=== PATIENT | female | born 2005 | race Caucasian/White ===

== ENCOUNTER 2023-05-17 17:12 | Emergency (ER) | payer BC, SELFPAY ==
[2023-05-17 17:17] VITALS: BP 104/58; PULSE 128; RESP 14; TEMP 36.3; O2SAT 97; BMI 26.6
--- NOTE | 2023-05-17 17:56 | ED_ITS ---
HPI - General Adult General Date Seen: 05/17/23 Chief complaint: Sore Throat Stated complaint: Sore throat/home covid neg. Time Seen by Provider: 05/17/23 17:20 Source: patient Mode of arrival: ambulatory Limitations: no limitations History of Present Illness HPI narrative: Patient is a 17-year-old female presenting with what for sore throat, fatigue, nausea. States that it has undergone for the past few days. She is exposed to COVID and strep she has taken 2 home COVID test there were both negative with the past couple days. She has been having associated nausea but has not been ea ting much due to the nausea. States she is not currently nauseated. Denies fevers or chills. States the pain is mild when she swallows. Denies any chest pain, shortness of breath, diarrhea, constipation. She does admit to having a headache. Has been taking Tylenol for the headache. Denies numbness, weakness, vision changes. Related Data Home Medications Medication Instructions Recorded Confirmed clindamycin phosphate 1 % topical 1 applic topical QDAY 07/03/22 05/17/23 gel sertraline 50 mg tablet (Zoloft) 50 mg PO QDAY 07/03/22 05/17/23 IUD 05/17/23 Previous Rx's Medication Instructions Recorded ondansetron 4 mg disintegrating 4 mg PO Q6H #20 tabs 05/17/23 tablet Allergies Allergy/AdvReac Type Severity Reaction Status Date / Time Penicillins Allergy Severe Verified 05/17/23 17:27 Review of Systems Status of ROS: Reports: 10 or more systems reviewed and unremarkable except as noted in History and below PFSH PFS Medical History (Updated 05/17/23 @ 19:25 by Willy Ramirez DO) OCD (obsessive compulsive disorder) ?F42.9 - Obsessive-compulsive disorder, unspecified (ICD-10) Anxiety ?F41.9 - Anxiety disorder, unspecified (ICD-10) Surgical History (Updated 07/03/22 @ 16:05 by Anne Mcduffie PA-C) No history of previous surgery Family History (Updated 07/03/22 @ 16:07 by Anne Mcduffie PA-C) Family/Other Stroke Paternal Grandmother Colon cancer Aunt Breast cancer Family/Other Ovarian cancer Family/Other Lymphoma Pancreatic cancer Maternal Grandmother High blood pressure Paternal Grandmother Diabetes Social History (Updated 07/03/22 @ 16:08 by Anne Mcduffie PA-C) Narrative: Sophomore at [employer], [place], originally from [place]. Exercises 2 times per week. Nonsmoker. Denies alcohol use. No recreational drug use. No concerns with safety or abuse Smoking Status: Former smoker Do you use any of these nicotine containing products: None How often do you have a drink containing alcohol: never AUDIT-C Alcohol total score: 0 Non-prescribed substance use: denies use service: No Exam Narrative: Exam Narrative: Const: Well-nourished, Well-developed, in mild distress Eyes: PERRL, no conjunctival injection, and symmetrical lids HENT: Atraumatic external nose and ears. Moist mucous membranes. Erythematous oropharynx, uvula midline, no tonsillar exudate or swelling Neck: Symmetric, trachea midline, No thyromegaly. CVS: RRR, No murmurs or gallops. Peripheral pulses 2+ and equal in all extremities RESP: Unlabored respiratory effort. Clear to auscultation bilaterally. GI: Nontender/Nondistended, No rebound or guarding. MSK:Extremities w/o deformity, Normal Active ROM Skin: Warm, Dry. No rashes or lesions. Neuro: Normal Muscle tone, No focal neurological deficits. Psych: Awake, Alert, & Oriented x3. Appropriate mood and affect. Const: Vital Signs, click to edit/add: Vital Signs - 24 hr 05/17/23 17:17 05/17/23 19:00 Temperature 97.3 F L 98.9 F Pulse Rate [Pulse Oximeter] 128 H Respiratory Rate 14 Blood Pressure [Ri ght Upper Arm] 104/58 L Pulse Oximetry 97 Oxygen Delivery Me thod Room Air Course Vital Signs Vital signs: Initial Vital Signs Temperature 97.3 F L 05/17/23 17:17 Temperature Source Temporal Artery Scan 05/17/23 17:17 Pulse Rate 128 H 05/17/23 17:17 Pulse Rhythm Regular 05/17/23 17:17 Respiratory Rate 14 05/17/23 17:17 Blood Pressure 104/58 L 05/17/23 17:17 Blood Pressure Mean 73 05/17/23 17:17 Blood Pressure Position Sitting 05/17/23 17:17 Pulse Oximetry 97 05/17/23 17:17 Oxygen Delivery Method Room Air 05/17/23 17:17 Vital Signs Temperature 97.3 F L 05/17/23 17:17 Pulse Rate 128 H 05/17/23 17:17 Respiratory Rate 14 05/17/23 17:17 Blood Pressure 104/58 L 05/17/23 17:17 Pulse Oximetry 97 05/17/23 17:17 Oxygen Delivery Method Room Air 05/17/23 17:17 Temperature 98.9 F 05/17/23 19:00 Pulse Rate 128 H 05/17/23 17:17 Respiratory Rate 14 05/17/23 17:17 Blood Pressure 104/58 L 05/17/23 17:17 Pulse Oximetry 97 05/17/23 17:17 Oxygen Delivery Method Room Air 05/17/23 17:17 Medical Decision Making MDM Narrative Medical decision making narrative: Patient is an 16-year-old female presented emergency department for sore throat. She is having no difficulty breathing and no signs of airway compromise at this time. Deep neck space infection seem to be unlikely at this time. She has not been eating because of nausea 1st not currently nauseated she does not want any nausea medication. Does admit to headache in with rather have oral ibuprofen over a Toradol injection. No signs of peritonsillar abscess. She has been around COVID positive people and we will test her again for COVID and flu despite the to home negative test. Also test for strep and mono. She has been drinking plenty of fluids according to her. COVID, flu,, strep test are all negative. Most likely symptoms are secondary a different viral syndrome. We will send home with nausea medication. She has not required any steroids for her sore throat. Can take Tylenol and ibuprofen for pain. She is agreeable to this plan. Lab Data Labs: Lab Results 05/17/23 05/17/23 Range/Units 17:27 18:00 SARS-CoV-2 (PCR) Negative SARS-CoV-2 (Negative) Monoscreen Negative (Negative) Influenza Type A (PCR) Negative PCR FLU A (Negative) Influenza Type B (PCR) Negative PCR FLU B (Negative) RSV (PCR) Negative PCR RSV (Negative) Group A Strep DNA NOT DETECTED (Not Detectd) Discharge Plan Discharge Clinical Impression: Acute viral pharyngitis Patient Disposition: Home, Self-Care Condition: Stable Instructions: Pharyngitis (ED) Additional Instructions: Take the Zofran as needed for nausea. Return for new or worsening symptoms. Use Tylenol and ibuprofen for pain. Make sure you stay well hydrated. Prescriptions: New ondansetron 4 mg tablet,disintegrating 4 mg PO Q6H Qty: 20 0RF No Action sertraline [Zoloft] 50 mg tablet 50 mg PO QDAY clindamycin phosphate 1 % gel 1 applic topical QDAY IUD Follow Up/Referrals: Provider,Not a Local [Primary Care Provider] - Stand Alone Forms: [employer] Info Instructions
[2023-05-17 18:14] LABS: Mono Screen* Negative (Negative)
[2023-05-17 18:14] LABS: Strep A DNA Probe* NOT DETECTED (Not Detectd)
[2023-05-17 18:22] LABS: PCR FLU A Negative PCR FLU A (Negative); PCR FLU B Negative PCR FLU B (Negative); PCR RSV Negative PCR RSV (Negative)
[2023-05-17] MEDS: IBUPROFEN 400 MG TABLET 800 MG PO (18:40)
[2023-05-17 19:00] VITALS: TEMP 37.2
[2023-05-17 19:22] LABS: SARS PCR* Negative SARS-CoV-2 (Negative)
== END 2023-05-17 19:38 | disposition home or self-care (01) ==
PROVIDERS: Emergency Provider Student in an Organized Health Care Education/Training Program
DX: J02.9 Acute pharyngitis, unspecified (principal)
CPT/HCPCS: 36415; 86308; 87631; 87651; 99282; 99283; A9270

== ENCOUNTER 2024-10-17 09:05 | Day surgery (SDC) | payer BC, SELFPAY ==
[2024-10-17] VITALS (15 sets, daily range): BP systolic 88–132; BP diastolic 47–74; PULSE 78–116; RESP 16–22; TEMP 36.4–36.9; O2SAT 93–99; BMI 31.4
[2024-10-17] MEDS: LACTATED RINGERS 1000 ML 1,000 ML 100 ML IV (06:55)
--- OUTSIDE RECORDS SUMMARY | 2024-10-17 09:08 | XMS_ITS | Encounter Summary ---
Author Organization [facility] Address [address] [address] Phone Care Team Providers Care Certification Engineer Name Role Phone Tatyana Valverde MD Primary Care Provider [phone] Encounter Details Date Type Department Care Team (Latest Contact Info) Description 09/17/2024 Travel Social History Tobacco Use Types Packs/Day Years Used Date Smoking Tobacco: Never Smokeless Tobacco: Never Alcohol Use Standard Drinks/Week Comments Yes 3 (1 standard drink = 0.6 oz pure alcohol) once every 1-2 weeks, a few drinks [facility] Utilities Answer Date Recorded In the past 12 months has [employer] electric, gas, oil, or water company threatened to shut off services in your home? No 04/22/2024 AUDIT-C Answer Date Recorded Q1: How often do you have a drink containing alc ohol? Never 04/28/2020 Average Number of Drinks Not on file 020 Frequency of Binge Drinking Not on file 09/2019 Overall Financial Resource Strain (CARDIA) Answe r Date Recorded How hard is it for you to pa y for the very basics like food, housing, medical care, and heating? Not very hard 08/24/2023 PHQ-2 Answer Date Recorded PHQ-2 Total 2 09/17/2024 Hunger Vital Sign Answer Date Recorded Within the past 12 months, y ou worried that your food would run out before you got the money to buy more. Never true 04/22/20 24 Within the past 12 months, t he food you bought just didn't last and you didn't have money to get more. Never true 04/22/2024 PRAPARE - Transportation Answer Date Re corded In the past 12 months, has l ack of transportation kept you from medical appointments or from getting medications? No 03/28 In the past 12 months, has l ack of transportation kept you from meetings, work, or from getting things needed for daily living? No 04/22/2024 Housing Stability Vital Sign Answer Michael e Recorded In the last 12 months, was t here a time when you were not able to pay the mortgage or rent on time? No 04/22/2024 Number of Times Moved in the Last Year Not on fi le 04/22/2024 At any time in the past 12 m ont, were you homeless or living in a intermediate (including now)? No 04/22/2024 EH IP Housing Domain Answer Date Record ed Retired - What is your livin g situation today? I have a steady place to live 08/24/2023 EH IP Custom Utilities ([employer]) Answer Date Recorded How hard is it for you to pa y for the very basics like food, housing, medical care, and heating? 4 08/24/2023 Comments No Sex and Gender Information Value Date Recorded Sex Assigned at Female 08/27/2022 12:57 PM TANK CALIBRATOR Legal Sex Female 1:52 PM CDT Gender Identity Female 08/27/2022 12:57 PM TANK CALIBRATOR Sexual Orientation Not on file documented as of this encounter Plan of Treatment Upcoming Encounters Date Type Department Care Team (Late st Contact Info) Description 10/23/2024 11:00 AM TANK CALIBRATOR Appointment [facility] [address] [place] [address] [phone] Alba Saunders, SANITATION LABORER,[facility] [address] [place] [address] [phone] documented as of this encounter Visit Diagnoses Not on filedocumented in this encounter Care Teams Certification Engineer Relationship Specialty Start Date End Date Tatyana Valverde MD [facility] [place] [address] PCP - General Family Medicine 04/05/21 documented as of this encounter
--- OUTSIDE RECORDS SUMMARY | 2024-10-17 09:08 | XMS_ITS | Encounter Summary ---
Author Organization [facility] Address [address] [address] Phone Care Team Providers Care Boat Builder And Repairer Name Role Phone Tatyana Valverde MD Primary Care Provider [phone] Reason for Visit * Reason Comments Anxiety Encounter Details Date Type Department Care Team ([facility] st Contact Info) Description 09/23/2024 2:30 PM BIOMEDICAL ELECTRONICS TECHNICIAN Office Visit [facility] [address] [place] [address] [phone] Alba Saunders, REHABILITATION ATTENDANT,DENTAL MECHANIC [address] [place] [phone] Obsessive-compulsive disorder with good or fair insight (Primary Dx) Social History Tobacco Use Types Packs/Day Years Used Date Smoking Tobacco: Never Smokeless Tobacco: Never Alcohol Use Standard Drinks/Week Comments Yes 3 (1 standard drink = 0.6 oz pure alcohol) once every 1-2 weeks, a few drinks [facility] Utilities Answer Date Recorded In the past 12 months has [employer], gas, oil, or water Nursing Home [facility] threatened to shut off services in your [...] any time in the past 12 m onths, were you homeless or living in a custodial (including now)? No 04/22/2024 EH IP Housing [...] Sex Assigned at Female 08/27/2022 12:57 PM BIOMEDICAL ELECTRONICS TECHNICIAN Legal Sex Female 1:52 PM CDT Gender Identity Female 08/27/2022 12:57 PM BIOMEDICAL ELECTRONICS TECHNICIAN Sexual Orientation Not on file documented as of this encounter Progress Notes * Alba Saunders, REHABILITATION ATTENDANT,[facility] - 09/23/2024 2:30 PM CST Images from the original note were not included. [facility] Progress Note Else19 year old presenting for follow up psychotherapy. Associated Diagnosis: 1. Obsessive-compulsive disorder with good or fair insight Current Outpatient Medications Medication Sig Dispense Refill metroNIDAZOLE (Metrogel) 0.75 % gel Apply topically two times a day. Apply to affected area: acne on face. 45 g 2 tretinoin (Retin-A) 0.05 % cream Apply topically every evening. Apply to affected area: acne on face. 45 g 2 FLUoxetine (PROzac) 20 MG capsule Take 1 capsule with 10 mg for total of 30 mg daily. 30 Capsule 1 FLUoxetine (PROzac) 10 MG capsule Take 1 capsule with 20 mg for total of 30 mg daily. 30 Capsule 1 Current Facility-Administered Medications Medication Dose Route Frequency Provider Last Rate Last Admin levonorgestrel (KYLEENA) 19.5 MG intra uterine device 1 Intra Uterine Device 1 Intra Uterine DeviceIntrauterine Continuous RoTatyana núñez MD 1 Intra Uterine Device at 03/24/22 1711 Start Time: 230PM End Time: 330PM Total Time =60 minutes Service Type: Outpatient Individual Psychotherapy Office visit in-person at [facility] Session: Dory arrived on time to her session and has continued to process the relationship she would like to have with her mother's . She also discusses the likelihood that she will become vanda's primary conduit cleaner in the future and how that may impact her next steps of decisions givenrox is graduating college. Dory is open to utilizing the DBT pros and cons list between finding [facility] in [facility] versus [place]. Session focused on continued rapport building, father figures, trauma and included the following intervention(s): Exploration of Feelings, Identifying Activators, Labeling Feelings, Process Work, andPsychoeducation. Assessment: Dory demonstrates good insight into her mental health symptoms and is engaged in the psychotherapy process. She is able to identify and articulate different behavioral patterns within herself as well as areas in which they may have originated. She will benefit from increased self-compassion and noticing her own 'rules'. Plan: Continue individual therapy Return in 1-2 weeks. Homework: Anxiety Symptoms reported: 09/22/2024 8:56 PM TIFFANIE-7 TIFFANIE Nervous (MyC) Several days TIFFANIE Worry (MyC) Several days TIFFANIE Worry Too Much (MyC) Several days TIFFANIE Relax (MyC) Several days TIFFANIE Restless (MyC) Several days TIFFANIE Annoyed (MyC) Several days TIFFANIE Afraid (MyC) Several days TIFFANIE Summary (MyC) Somewhat hard TIFFANIE Scoring (MyC) 7 Adult Scorin or higher- significant anxiety; 15 or higher- severe anxiety Adolescent Scoring: none (0), mild (1), moderate (2), severe (3), extreme (4) Depressive Symptoms reported: Patient notes the following DSM-IV Depression symptoms on a scale of 0-3: 09/17/2024 2:49 PM PHQ-9, C-SSRS Total PHQ-9 Score: 4 Depressed Mood Several Days Anhedonia Several Days Sleep Change Several Days Fatigue Several Days Appetite Change Not at all Poor Self-esteem Not at all Poor Concentration Not at all Psychomotor Change Not at all Suicidal Ideation Not at all Difficulty Caused by Symptoms Somewhat difficult Patient-reported (Typical scores: 0-4=no or minimal; 5-9=minor; 10-14 =mild major depression; 15- 19=moderate major depression; 20-27= severe major depression.) A Parker Suicide Severity Rating Scale (C-SSRS) Screener/Recent-Self Report screen was performed,identifying - No Risk (0), no current suicidal ideation or behaviors. . Current self-injury behavior: no Clinician's estimate of patient's self-injury risk: none Clinician's estimate of patient's risk of harm to others: none Safety review: Upon interview, patient denies thoughts, plans, or intent or risk of harm to self and or others. MENTAL STATUS OBSERVATIONS Dress: casual and appropriate. Grooming: well groomed. Psychomotor: steady gait and coordinated. Speech: normal rate and normal volume. Associations: thought process and content logical and coherent and no psychotic symptomology present. Thought content: no problem. Mood: normal, cheerful, and anxious. Affect: affect correlated to mood. Orientation: fully oriented. Memory: grossly intact. Judgment/Insight: good. EDICAL ELECTRONICS TECHNICIAN documented in this encounter Plan of Treatment Upcoming Encounters Date Type Department Care Team (Late st Contact Info) Description 10/23/2024 11:00 AM BIOMEDICAL ELECTRONICS TECHNICIAN Appointment [facility] [address] [place] [address] [phone] Alba Saunders MSW,DENTAL MECHANIC [address] [place] [address] [phone] documented as of this encounter Visit Diagnoses Diagnosis Obsessive-compulsive disorder with good or fair insight- Primary documented in this encounter Care Teams Boat Builder And Repairer Relationship Specialty Start Date End Date Tatyana Valverde MD [address] [place] [address] [phone] PCP - General Family Medicine 04/05/21 documented as of this encounter
--- OUTSIDE RECORDS SUMMARY | 2024-10-17 09:08 | XMS_ITS | Encounter Summary ---
Author Organization [facility] Address [address] [address] Phone Care Team Providers Care Cancer Program Coordinator Name Role Phone Tatyana Valverde MD Primary Care Provider [phone] Reason for Visit * Reason Onset Date Comments Refill Request 09/01/2021 Encounter Details Date Type Department Care Team (Late st Contact Info) Description 09/01/[address] [facility] - NURSE CARE LINE [address] [place], [place] [phone] Tatyana Valverde MD [address] [place] [address] Social History Tobacco Use Types Packs/Day Years Used Date Smoking Tobacco: Never Smokeless Tobacco: Never Alcohol Use Standard Drinks/Week Comments Never 0 (1 standard drink = 0.6 oz pur e alcohol) AUDIT-C Answer Date Recorded Q1: How often do you have a drink containing alc ohol? Never 04/28/2020 Average Number of Drinks Not on file 020 Frequency of Binge Drinking Not on file 09/2019 Overall Financial Resource Strain (CARDIA) Answe r Date Recorded How hard is it for you to pa y for the very basics like food, housing, medical care, and heating? Not hard at all 04/28/2020 PHQ-2 Answer Date Recorded PHQ-2 Total 0 05/04/2021 Hunger Vital Sign Answer Date Recorded Within the past 12 months, y ou worried that your food would run out before you got the money to buy more. Never true 04/28/20 20 Within the past 12 months, t he food you bought just didn't last and you didn't have money to get more. Never true 04/28/2020 PRAPARE - Transportation Answer Date Re corded In the past 12 months, has l ack of transportation kept you from medical appointments or from getting medications? No 09/2019 In the past 12 months, has l ack of transportation kept you from meetings, work, or from getting things needed for daily living? No 04/28/2020 Comments No Sex and Gender Information Value Date Recorded Sex Assigned at Female 08/27/2022 12:57 PM PERSONAL LINES SALES EXECUTIVE Legal Sex Female 1:52 PM CDT Gender Identity Female 08/27/2022 12:57 PM PERSONAL LINES SALES EXECUTIVE Sexual Orientation Not on file documented as of this encounter Plan of Treatment Upcoming Encounters Date Type Department Care Team (Late st Contact Info) Description 10/23/2024 11:00 AM PERSONAL LINES SALES EXECUTIVE Appointment [facility] [address] [place] [address] [phone] Alba Saunders, QUALITY CONTROL MANAGER,[facility] [address] [place] [address] [phone] documented as of this encounter Visit Diagnoses Not on filedocumented in this encounter Care Teams Cancer Program Coordinator Relationship Specialty Start Date End Date Tatyana Valverde MD [address] [place] [phone] PCP - General Family Medicine 04/05/21 documented as of this encounter
--- OUTSIDE RECORDS SUMMARY | 2024-10-17 09:08 | XMS_ITS | Clinical Summary ---
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 FLUoxetine (PROzac) 20 MG capsule Take 1 capsule with 10 mg for total of 30 mg daily. 30 Capsule 1 4 Active FLUoxetine (PROzac) 10 MG capsule Take 1 capsule with 20 mg for total of 30 mg daily. 30 Capsule 1 4 Active metroNIDAZOLE (Metrogel) 0.75 % gel Apply topically two times a day. Apply to affected area: acne on face. 45 g 2 4 Active tretinoin (Retin-A) 0.05 % cream Apply topically every evening. Apply to affected area: acne on face. 45 g 2 4 Active Hospital, Clinic, or Other Facility Administered Medication Ordered Dose Route Frequency Start Date End Date Status levonorgestrel (KYLEENA) 19.5 MG intra uterine device 1 Intra Uterine DeviceIndications:Encou nter for IUD insertion 1 Intra Uterine Device IU CONTINUOUS 03/24/2022 Active Active Problems Problem Noted Date Diagnosed Date Generalized anxiety disorder 10/08/2024 Obsessive-compulsive disorder with good or fair insight 02/11/2024 IUD (intrauterine device) in place 03/24/2022 Overview (08/24/2023): Kyleena 03/24/22: replace 02/2027 Other acne 03/25/2018 Resolved Problems Problem Noted Date Diagnosed Date Resolved Date BMI 31.0-31.9,adult 01/18/2023 08/24/20 23 Other migraine with status m igrainosus, not intractable 05/23/2016 03/25/2018 Irregular menses 05/23/2016 03/25/2018 Encounters Date Type Department Care Team Description 10/09/2024 Nurse Triage [facility] [address] [place] [address] Tatyana Hess, RN Patient Education 10/08/2024 Plan of Care Documentation [facility] [address] [place] [address] 10/07/2024 8:00 AM CLOTH WEAVER Telehealth [facility] [address] [place] [address] Alba Saunders, STEREOPTIC PROJECTION TOPOGRAPHER,CHIEF EXECUTIVE Obsessive-compulsiv e disorder with good or fair insight (Primary Dx); Generalized anxiety disorder 10/07/2024 Travel 09/23/2024 2:30 PM CLOTH WEAVER Office Visit [facility] [address] [place] [address] Alba Saunders, STEREOPTIC PROJECTION TOPOGRAPHER,CHIEF EXECUTIVE Obsessive-compulsiv e disorder with good or fair insight (Primary Dx) 09/22/2024 Travel 09/17/2024 3:30 PM CLOTH WEAVER Office Visit [facility] [address] [place] [address] Alba Saunders, STEREOPTIC PROJECTION TOPOGRAPHER,CHIEF EXECUTIVE Obsessive-compulsiv e disorder with good or fair insight (Primary Dx) 09/17/2024 Travel 09/03/2024 12:30 PM CLOTH WEAVER Office Visit [facility] [address] [place] [address] Alba Saunders, STEREOPTIC PROJECTION TOPOGRAPHER,CHIEF EXECUTIVE Obsessive-compulsiv e disorder with good or fair insight (Primary Dx) 09/03/2024 Travel 08/26/2024 11:00 AM CLOTH WEAVER Office [facility] [address] [place] [address], [place] [address] Alba Saunders, STEREOPTIC PROJECTION TOPOGRAPHER,CHIEF EXECUTIVE Obsessive-compulsiv e disorder with good or fair insight (Primary Dx) 08/26/2024 Travel 07/31/2024 9:00 AM CLOTH WEAVER Telehealth [facility] [address] [place] [address], [place] [address] Alba Saunders, STEREOPTIC PROJECTION TOPOGRAPHER,CHIEF EXECUTIVE Obsessive-compulsiv e disorder with good or fair insight (Primary Dx) 07/31/2024 Travel 07/23/2024 1:00 PM CLOTH WEAVER Office Visit [facility] [address] [place] [address], [place] [address] Nicky, Alba Styles, STEREOPTIC PROJECTION TOPOGRAPHER,CHIEF EXECUTIVE Obsessive-compulsiv e disorder with good or fair insight (Primary Dx) 07/23/2024 Travel from Last 3 Months Immunizations Name Administration Dates Next Due COVID-19 MRNA Vaccine (Moder na) 12+ Yrs Seasonal 05/31/2023 COVID-19 MRNA Vaccine (Pfize r Bivalent TRI-SUCR) [place]acio 12+ YRS 08/03/2022 COVID-19 Vaccine: Pfizer Dos e 1 (Purple- 12+ Yrs) [facility] 10/27/2020 COVID-19 Vaccine: Pfizer Dos e 2 (Purple- 12+ Yrs) [facility] 11/17/2020 COVID-19 mRNA Vaccine (Pfize r-Purple 12+ Yrs) 07/22/2021 DTaP NOS <7 years 07/07/2008, 7,04/10/2005,04/29,2003,2003 Hepatitis A, Ped/Adolescent 2 dose 03/25/2010,,06/21/2007 Hepatitis B, Pediatric/adolescent 04/29/2004,,2003 Hib (Nos) 06/07/2004, 4,04/29/2004,12/17,2003 Human Papilloma Virus 9 05/19/2016 Human Papilloma Virus Quadrivalent 06/04/2014 IPV 07/07/2008, 7,04/29/2004,12/17,2003 Influenza Quad Preservative Free 023,08/03/2022,06/13/2021,06/12,09/21/2017,05/12/2016 Influenza Trivalent With Preservative 06/23/2015 Influenza Unspecified Formulation 06/04/2014 Influenza Vaccine (6 months - 64 Years) Quad PF Syringe (Flu Clinic) 06/22/2020,06/07/2018 MMR 07/07/2008,06/21/2007,06/07/2004 Meningococcal B Vaccine, Rec ombinant Omv, Adjuvanted 03/30/2021 Meningococcal MCV4 (Menveo) 2 Vials 03/30/2021 Meningococcal Unspecified 06/04/2014 Pneumococcal Conjugate, (Prevnar)13-valent 06/21/2007,04/10/2005,06/07/2004 Pneumococcal Unspecified Formulation 06/21/2007 Tdap (7 years and older) 04/22/2024,06/04/2014 Varicella (Varivax) 07/07/2008,06/21/2007 Medical History Medical History Date Comments Strep pharyngitis 12/06/2015 Family History Medical History Relation Comments Ophthalmic Disease Brother TBI - MVA Hypertension Father Basal cell carcinoma Maternal Aunt Basal cell carcinoma Maternal Grandfather Hypertension Maternal Grandfather Lymphoma Maternal Grandfather Non-hodkins lymphoma Cancer Maternal Grandmother Pancreatic, late 70's Endometriosis Mother Other Mother Benign meningiom a near optic nerve, treated with radiation Breast Cancer Paternal Aunt Colon Cancer Paternal Grandfather Cancer Paternal Grandmother Diabetes Paternal Grandmother Relation Status Comments Brother Father Maternal Aunt Maternal Grandfather Alive Maternal Grandmother Mother Alive Paternal Aunt Alive Paternal Grandfather Paternal Grandmother Social History Tobacco Use Types Packs/Day Years Used Date Smoking Tobacco: Never Smokeless Tobacco: Never Alcohol Use Standard Drinks/Week Comments Yes 3 (1 standard drink = 0.6 oz pure alcohol) once every 1-2 weeks, a few drinks [facility] Utilities Answer Date Recorded In the past 12 months has [employer] gas, oil, or water [employer] threatened to shut off services in your [...] PHQ-2 Answer Date Recorded PHQ-2 Total 2 10/07/2024 Hunger Vital Sign Answer Date Recorded Within [...] any time in the past 12 m [facility], were you homeless or living in a senior living (including now)? No 04/22/2024 EH IP Housing [...] Sex Assigned at Female 08/27/2022 12:57 PM CLOTH WEAVER Legal Sex Female 1:52 PM CDT Gender Identity Female 08/27/2022 12:57 PM CLOTH WEAVER Sexual Orientation Not on file Obstetrics History Last Filed Vital Signs Vital Sign Reading Time Taken Comments Blood Pressure 114/75 04/22/2024 10:37 AM CDT Pulse 101 04/22/2024 10:37 AM CDT Temperature 37 C (98.6 F) 04/22/2024 10:37 AM CDT Respiratory Rate 16 04/27/2023 1:51 PM CDT Oxygen Saturation 96% 04/22/2024 10:37 AM CDT Inhaled Oxygen Concentration - - Weight 92.5 kg (204 lb) 04/22/2024 10:37 AM CDT Height 170.2 cm (5' 7) 04/22/2024 10:37 AM CDT Body Mass Index 31.95 04/22/2024 10:37 AM CDT Plan of Treatment Upcoming Encounters Date Type Department Care Team (Late st Contact Info) Description 10/23/2024 11:00 AM CLOTH WEAVER Appointment [facility] [address] [place] [address] [phone] Alba Saunders STEREOPTIC PROJECTION TOPOGRAPHER,[facility] [address] [place] [address] Health Maintenance Due Date Last Done Comments Cervical Cancer Screening 2003 Last pap w/ HPV Testing 2003 Last pap w/o HPV Testing 2003 Meningococcal B Vaccine (Sta nding Order) (2 of 2 - Bexsero SCDM 2-dose series) 09/30/2021 03/30/2021 Chlamydia Screening 01/19/2024 01/18/2023 COVID-19 Vaccine (2023-2 5 season) 2024 05/31/2023, 08/03/2022, 07/22/2021, Additional history exists Influenza Vaccine Seasonal (Standing Order) (#1) 2024 05/31/2023, 08/03/2022, 06/13/2021, Additional history exists CHILD AND TEEN CHECKUP AGE 3 -20 YRS 04/22/2025 04/22/2024, 04/22/2024, 01/18/2023, Additional history exists TETANUS (Standing Order) 04/22/2034 024, 06/04/2014, 07/07/2008, Additional history exists Hepatitis B Vaccine (Standin g Order) Completed 04/29/2004, 2003, 2003 Pneumococcal/PCV20 Vaccine: Pediatrics (2-5 yrs) and At-Risk Patients (6-49 yrs) (Standing Order) Completed 06/21/2007, 06/21/2007, 04/10/2005, Additional history exists HPV Vaccine (Standing Order) Completed 05/19/2016, 06/04/2014 PERTUSSIS (Standing Order) Completed 04/22, 06/04/2014, 07/07/2008, Additional history exists Procedures Procedure Name Priority Date/Time Associated Diagnosis Comments CHLAMYDIA TRACHOMATIS/NEISSERI A GONORRHOEAE MOLECULAR DETECTION Routine 01/18/2023 10:32 AM CDT Routine general medical examination at a [facility] care facility from Last 3 Months or Most Recently Relevant to Health Maintenance Results * CHLAMYDIA TRACHOMATIS/NEISSERIA GONORRHOEAE MOLECULAR DETECTION (01/18/2023 10:32 AM CDT) Chlamydia trachomatis Not Detected Not Detected 01/18/2023 3:07 PM CDT [facility] Neisseria gonorrhoeae Not Detected Not Detected 01/18/2023 3:07 PM CDT [facility] Swab VAGINAL SWAB / Unknown Non-blood collection / Unknown 01/18/2023 10:32 AM CDT 01/18/2023 11:08 AM CDT Narrative [facility] - 01/18/2023 3:07 PM CDT Test detects target RNA/DNA by real-time polymerase chain reaction (PCR) on the [employer] GeneXpert Dx System. us Tatyana Valverde MD EC MICROBIOLOGY - GENERAL ORDERA BLES Final Result [facility] [address] [place] [address], [facility] from Last 3 Months or Most Recently Relevant to Health Maintenance Insurance [facility] [employer] [facility] Care Teams Golf Course Architect Relationship Specialty Start Date End Date Tatyana Valverde MD [address] [place] [phone] PCP - General Family Medicine 04/05/21
--- OUTSIDE RECORDS SUMMARY | 2024-10-17 09:08 | XMS_ITS | Encounter Summary ---
Author Organization [facility] Address [address] [address] Phone Care Team Providers Care Hatch Supervisor Name Role Phone Tatyana Valverde MD Primary Care Provider [phone] Encounter Details Date Type Department Care Team (Latest Contact Info) Description 09/22/2024 Travel Social History Tobacco Use Types Packs/Day Years Used Date Smoking Tobacco: Never Smokeless Tobacco: Never Alcohol Use Standard Drinks/Week Comments Yes 3 (1 standard drink = 0.6 oz pure alcohol) once every 1-2 weeks, a few drinks [facility] Utilities Answer Date Recorded In the past 12 months has [employer] electric, gas, oil, or water company threatened [...] were you homeless or living in a snf (including now)? No 04/22/2024 EH IP Housing [...] Sex Assigned at Female 08/27/2022 12:57 PM RENTAL MANAGEMENT TRAINEE Legal Sex Female 1:52 PM CDT Gender Identity Female 08/27/2022 12:57 PM RENTAL MANAGEMENT TRAINEE Sexual Orientation Not on file documented as of this encounter Plan of Treatment Upcoming Encounters Date Type Department Care Team (Late st Contact Info) Description 10/23/2024 11:00 AM RENTAL MANAGEMENT TRAINEE Appointment [facility] [address] [place] [address] [phone] Alba Saunders, SENIOR TELECOMMUNICATIONS SPECIALIST,[facility] [address] [place] [address] [phone] documented as of this encounter Visit Diagnoses Not on filedocumented in this encounter Care Teams Hatch Supervisor Relationship Specialty Start Date End Date Tatyana Valverde MD [facility] [place] [address] PCP - General Family Medicine 04/05/21 documented as of this encounter
--- OUTSIDE RECORDS SUMMARY | 2024-10-17 09:08 | XMS_ITS | Encounter Summary ---
Author Organization [facility] Address [address] [address] Phone Care Team Providers Care Foster Care Social Worker Name Role Phone Tatyana Valverde MD Primary Care Provider [phone] Reason for Visit * Reason Onset Date Comments Patient Education 10/09/2024 Encounter Details Date Type Department Care Team (Late st Contact Info) Description 10/09/2024 Nurse Triage [facility] [address] [place] [address] Tatyana Hess, RN Patient Education Social History Tobacco Use Types Packs/Day Years Used Date Smoking Tobacco: Never Smokeless Tobacco: Never Alcohol Use Standard Drinks/Week Comments Yes 3 (1 standard drink = 0.6 oz pure alcohol) once every 1-2 weeks, a few drinks [facility] Utilities Answer Date Recorded In the past 12 months has [employer], gas, oil, or water [email or web address] threatened to shut off services in your [...] in a snf (including now)? No 04/22/2024 IP Housing Domain Answer Date Record ed Retired - What is your livisacc g situation today? I have a steady place to live 08/24/2023 EH IP Custom Utilities ([employer]) Answer Date Recorded How hard is it for you to pa y for the very basics like food, housing, medical care, and heating? 4 08/24/2023 Comments No Sex and Gender Information Value Date Recorded Sex Assigned at Female 08/27/2022 12:57 PM MEDICAL OFFICE TECHNOLOGIST Legal Sex Female 1:52 PM CDT Gender Identity Female 08/27/2022 12:57 PM MEDICAL OFFICE TECHNOLOGIST Sexual Orientation Not on file documented as of this encounter Miscellaneous Notes * Telephone Encounter - Tatyana Hess RN - 10/09/2024 6:34 PM CST Reason for Disposition General information question, no triage required and triager able to answer question Protocols used: Information Only Call-A- Patient asks multiple questions regarding her fractured ankle including, positioning when sleeping and monitoring tingling. Advised patient that she should elevate her leg and follow advice that the urgent care gave her. She should also follow the information regarding the tingling in her foot. She states that the urgent care told her that it is normal. She states that she is going to try to contact the urgent care again. She has no further questions or concerns at this time. Instructed patient/caregiver to call back if symptoms worsen or if new symptoms develop. Was the patient offered a Video Visit on Demand? No. Not appropriate for symptom. CAL OFFICE TECHNOLOGIST * Telephone Encounter - Tatyana Hess RN - 10/09/2024 5:40 PM CST ----- Message from Jennifer sent at 10/09/2024 5:18 PM MEDICAL OFFICE TECHNOLOGIST ----- Tatyana Valverde MD Pt states broke ankle 10/08/24 went to ER has a question on the best position for ankle please callto discuss CAL OFFICE TECHNOLOGIST documented in this encounter Plan of Treatment Upcoming Encounters Date Type Department Care Team (Late st Contact Info) Description 10/23/2024 11:00 AM MEDICAL OFFICE TECHNOLOGIST Appointment [facility] [address] [place] [address] [phone] Alba Saunders, STEAM AND POWER SUPERVISOR,[facility] [address] [place] [address] [phone] documented as of this encounter Visit Diagnoses Not on filedocumented in this encounter Care Teams Foster Care Social Worker Relationship Specialty Start Date End Date Tatyana Valverde MD [address] [place] [address] [phone] PCP - General Family Medicine 04/05/21 documented as of this encounter
--- OUTSIDE RECORDS SUMMARY | 2024-10-17 09:08 | XMS_ITS | Encounter Summary ---
Author Organization [facility] Address [address] [address] Phone Care Team Providers Care Egg Tester Name Role Phone Tatyana Valverde MD Primary Care Provider [phone] Encounter Details Date Type Department Care Team (Late st Contact Info) Description 09/17/2024 3:30 PM KEY PUNCH OPERATOR Office Visit [facility] [address] [place] [address] [phone] Alba Saunders, REAL ESTATE INSTRUCTOR,ULTRASOUND SONOGRAPHER [address] [place] [address] [phone] Obsessive-compulsive disorder with good or fair insight (Primary Dx) Social History Tobacco Use Types Packs/Day Years Used Date Smoking Tobacco: Never Smokeless Tobacco: Never Alcohol Use Standard Drinks/Week Comments Yes 3 (1 standard drink = 0.6 oz pure alcohol) once every 1-2 weeks, a few drinks [facility] Utilities Answer Date Recorded In the past 12 months has [employer], gas, oil, or water [employer] threatened to shut off services in your [...] any time in the past 12 m [facility], were you homeless or living [...] Sex Assigned at Female 08/27/2022 12:57 PM KEY PUNCH OPERATOR Legal Sex Female 1:52 PM CDT Gender Identity Female 08/27/2022 12:57 PM KEY PUNCH OPERATOR Sexual Orientation Not on file documented as of this encounter Progress Notes * Alba Saunders, REAL ESTATE INSTRUCTOR,ULTRASOUND SONOGRAPHER - 09/17/2024 3:30 PM CST Images from the original note were not included. [facility] Progress Note Else21 [...] Uterine Device 1 Intra Uterine DeviceIntrauterine Continuous Rova, Tatyana Styles MD 1 Intra Uterine Device at 03/24/22 1719 Start Time: 1240PM End Time: 140PM Total Time =60 minutes Service Type: Outpatient Individual Psychotherapy Office visit in-person at [facility] Session: Dory arrived on time to her session and notes symptom improvement since ART session. She notices the intensity of her grief has decreased, which also includes her feeling guilty as though she should be suffering more. Dory is able to call out this thought as inaccurate. She also shares interpersonal stress with the relationship she has with her mom's and barriers she notices within herself that gets in the way of increasing the quality of this relationship. Session focused on continued rapport building, father [...] in 1-2 weeks. Homework: Anxiety Symptoms reported: 09/17/2024 2:49 PM TIFFANIE-7 TIFFANIE Nervous (MyC) Several days [...] major depression; 20-27= severe major depression.) A Dixie Suicide Severity Rating Scale (C-SSRS) Screener/Recent-Self Report [...] fully oriented. Memory: grossly intact. Judgment/Insight: good. PUNCH OPERATOR documented in this encounter Plan of Treatment Upcoming Encounters Date Type Department Care Team (Late st Contact Info) Description 10/23/2024 11:00 AM KEY PUNCH OPERATOR Appointment [facility] [address] [place] [address] [phone] Alba Saunders MSW,ULTRASOUND SONOGRAPHER [address] [place] [address] documented as of this encounter Visit Diagnoses Diagnosis Obsessive-compulsive disorder with good or fair insight- Primary documented in this encounter Care Teams Egg Tester Relationship Specialty Start Date End Date Tatyana Valverde MD [address] [place] [phone] PCP - General Family Medicine 04/05/21 documented as of this encounter
--- OUTSIDE RECORDS SUMMARY | 2024-10-17 09:08 | XMS_ITS | Encounter Summary ---
Author Organization [facility] Address [address] [address] Phone Care Team Providers Care J2Ee Software Engineer Name Role Phone Tatyana Valverde MD Primary Care Provider [phone] Encounter Details Date Type Department Care Team (Latest Contact Info) Description 10/07/2024 Travel Social History Tobacco Use Types Packs/Day Years Used Date Smoking Tobacco: Never Smokeless Tobacco: Never Alcohol Use Standard Drinks/Week Comments Yes 3 (1 standard drink = 0.6 oz pure alcohol) once every 1-2 weeks, a few drinks [facility] Utilities Answer Date Recorded In the past 12 months has Personal Estate Manager electric, gas, oil, or water company threatened [...] were you homeless or living in a retirement (including now)? No 04/22/2024 EH IP Housing [...] Sex Assigned at Female 08/27/2022 12:57 PM NUT TIGHTENER Legal Sex Female 1:52 PM CDT Gender Identity Female 08/27/2022 12:57 PM NUT TIGHTENER Sexual Orientation Not on file documented as of this encounter Plan of Treatment Upcoming Encounters Date Type Department Care Team (Late st Contact Info) Description 10/23/2024 11:00 AM NUT TIGHTENER Appointment [facility] [address] [place] [address] [phone] Alba Saunders, GRAIN DRIER,[facility] [address] [place] [address] [phone] documented as of this encounter Visit Diagnoses Not on filedocumented in this encounter Care Teams J2Ee Software Engineer Relationship Specialty Start Date End Date Tatyana Valverde MD [facility] [place] [address] PCP - General Family Medicine 04/05/21 documented as of this encounter
--- OUTSIDE RECORDS SUMMARY | 2024-10-17 09:08 | XMS_ITS | Encounter Summary ---
Author Organization [facility] Address [address] [address] Phone Care Team Providers Care Dogger Name Role Phone Tatyana Valverde MD Primary Care Provider [phone] Encounter Details Date Type Department Care Team (Late st Contact Info) Description 09/03/2024 12:30 PM CIO Office Visit [facility] [address] [place] [address] [phone] Alba Saunders, ALUMINUM WELDER,DISTRICT OR DISTRICT OFFICE DIRECTOR [address] [place] [address] [phone] Obsessive-compulsive disorder with good or fair insight (Primary Dx) Social History Tobacco Use Types Packs/Day Years Used Date Smoking Tobacco: Never Smokeless Tobacco: Never Alcohol Use Standard Drinks/Week Comments Yes 3 (1 standard drink = 0.6 oz pure alcohol) once every 1-2 weeks, a few drinks [facility] Utilities Answer Date Recorded In the past 12 months has [employer], gas, oil, or water [employer] threatened to shut off services in your [...] PHQ-2 Answer Date Recorded PHQ-2 Total 2 08/26/2024 Hunger Vital Sign Answer Date Recorded Within [...] any time in the past 12 m [facility], were you homeless or living in a fdc (including now)? No 04/22/2024 IP Housing Domain [...] Sex Assigned at Female 08/27/2022 12:57 PM CIO Legal Sex Female 1:52 PM CDT Gender Identity Female 08/27/2022 12:57 PM CIO Sexual Orientation Not on file documented as of this encounter Progress Notes * Alba Saunders, ALUMINUM WELDER,DISTRICT OR DISTRICT OFFICE DIRECTOR - 09/03/2024 12:30 PM CST Images from the original note [...] Outpatient Individual Psychotherapy Office visit in-person at [facility] Session: This session utilized the ART Basic protocol to help the client process negative images and sensations around the loss of her grandfather. Processing was supported using a systemic approach of neutralizing negative sensations, accessing the memory reconsolidation window, imaginal exposure,desensitization, voluntary image replacement, identifying and neutralizing potential triggers, and assessing and improving levels of confidence. All steps were accompanied by the use of bilateral eyemovements. Session focused on continued rapport building, father figures, trauma and included the following intervention(s): Exploration of Feelings, Identifying Activators, Labeling Feelings, Process Work, andPsychoeducation. Assessment: Else demonstrates good insight into her mental health symptoms and is engaged in the psychotherapy process. She is able to identify and articulate different behavioral patterns within herself as well as areas in which they may have originated. She will benefit from increased self-compassion and noticing her own 'rules'. Plan: Continue individual therapy Return in 1-2 weeks. Homework: Anxiety Symptoms reported: 08/26/2024 10:54 AM TIFFANIE-7 TIFFANIE Nervous (MyC) Several days TIFFANIE Worry (MyC) Several days TIFFANIE Worry Too Much (MyC) Several days TIFFANIE Relax (MyC) Several days TIFFANIE Restless (MyC) Several days TIFFANIE Annoyed (MyC) More than half the days TIFFANIE Afraid (MyC) Several days TIFFANIE Summary (MyC) Somewhat hard TIFFANIE Scoring (MyC) 8 Adult Scorin or higher- significant anxiety; 15 or higher- severe anxiety Adolescent Scoring: none (0), mild (1), moderate (2), severe (3), extreme (4) Depressive Symptoms reported: Patient notes the following DSM-IV Depression symptoms on a scale of 0-3: 08/26/2024 10:53 AM PHQ-9, C-SSRS Total PHQ-9 Score: 8 Depressed Mood Several Days Anhedonia Several Days Sleep Change More than half the Days Fatigue Nearly Everyday Appetite Change Several Days Poor Self-esteem Not at all Poor Concentration Not at all Psychomotor Change Not at all Suicidal Ideation Not at all Difficulty Caused by Symptoms Very difficult Patient-reported (Typical scores: 0-4=no or minimal; 5-9=minor; 10-14 =mild major depression; 15- 19=moderate major depression; 20-27= severe major depression.) A [place] Suicide Severity Rating Scale (C-SSRS) Screener/Recent-Self Report [...] fully oriented. Memory: grossly intact. Judgment/Insight: good. documented in this encounter Plan of Treatment Upcoming Encounters Date Type Department Care Team (Late st Contact Info) Description 10/23/2024 11:00 AM CIO Appointment E [facility] [address] [place] [address] [phone] Alba Saunders MSW,DISTRICT OR DISTRICT OFFICE DIRECTOR [address] [place] [phone] documented as of this encounter Visit Diagnoses Diagnosis Obsessive-compulsive disorder with good or fair insight- Primary documented in this encounter Care Teams Dogger Relationship Specialty Start Date End Date Tatyana Valverde MD [address] [place] [phone] PCP - General Family Medicine 04/05/21 documented as of this encounter
--- OUTSIDE RECORDS SUMMARY | 2024-10-17 09:08 | XMS_ITS | Encounter Summary ---
Author Organization [facility] Address [address] [address] Phone Care Team Providers Care Reconciliation Analyst Name Role Phone Tatyana Valverde MD Primary Care Provider [phone] Encounter Details Date Type Department Care Team (Late st Contact Info) Description 10/07/2024 8:00 AM [facility] Telehealth [facility] [address] [place] [address] [phone] Alba Saunders, BASKET FILLER,MASH TUB COOKER [address] [place] [address] [phone] Obsessive-compulsive disorder with good or fair insight (Primary Dx); Generalized anxiety disorder Social History Tobacco Use Types Packs/Day Years Used Date Smoking Tobacco: Never Smokeless Tobacco: Never Alcohol Use Standard Drinks/Week Comments Yes 3 (1 standard drink = 0.6 oz pure alcohol) once every 1-2 weeks, a few drinks [facility] Utilities Answer Date Recorded In the past 12 months has [employer], gas, oil, or water [employer] threatened to shut off services in your [...] any time in the past 12 m [facility], were you homeless or living in a residential (including now)? No 04/22/2024 EH IP Housing [...] Sex Assigned at Female 08/27/2022 12:57 PM REGIONAL PROPERTY MANAGER Legal Sex Female 1:52 PM CDT Gender Identity Female 08/27/2022 12:57 PM REGIONAL PROPERTY MANAGER Sexual Orientation Not on file documented as of this encounter Progress Notes * Alba Saunders, BASKET FILLER,MASH TUB COOKER - 10/07/2024 8:00 AM CST Images from the original note were not included. [facility] Progress Note Else19 year old presenting for follow up psychotherapy. Associated Diagnosis: 1. Obsessive-compulsive disorder with good or fair insight 2. Generalized anxiety disorder Current Outpatient Medications Medication Sig Dispense Refill [...] Uterine Device 1 Intra Uterine DeviceIntrauterine Continuous [place], Tatyana Styles MD 1 Intra Uterine Device at 03/24/22 1573 Start Time: 805AM End Time: 9AM Total Time =55 minutes Service Type: Outpatient Individual Psychotherapy Office visit in-person at [facility] Session: Dory arrived on time to her session and processes the transition back to school and noticed it was more difficult than usual this time around. She additionally notices ruminative thoughts surrounding a comment she made to about her mom that she fears could be taken as negative. She is opento exploring the components to this, and fact checking distortions associated. Session focused on continued rapport building, father [...] in 1-2 weeks. Homework: Anxiety Symptoms reported: 10/07/2024 8:05 AM TIFFANIE-7 TIFFANIE Nervous (MyC) More than half the days TIFFANIE Worry (MyC) More than half the days TIFFANIE Worry Too Much (MyC) More than half the days TIFFANIE Relax (MyC) More than half the days TIFFANIE Restless (MyC) Several days TIFFANIE Annoyed (MyC) Several days TIFFANIE Afraid (MyC) Several days TIFFANIE Summary (MyC) Somewhat hard TIFFANIE Scoring (MyC) 11 Adult Scorin or higher- significant anxiety; 15 or higher- severe anxiety Adolescent Scoring: none (0), mild (1), moderate (2), severe (3), extreme (4) Depressive Symptoms reported: Patient notes the following DSM-IV Depression symptoms on a scale of 0-3: 10/07/2024 8:05 AM PHQ-9, C-SSRS Total PHQ-9 Score: 7 Depressed Mood Several Days Anhedonia Several Days Sleep Change Several Days Fatigue Several Days Appetite Change Several Days Poor Self-esteem Several Days Poor Concentration Several Days Psychomotor Change Not at all Suicidal Ideation Not at all Difficulty Caused by Symptoms Somewhat difficult Patient-reported (Typical scores: 0-4=no or minimal; 5-9=minor; 10-14 =mild major depression; 15- 19=moderate major depression; 20-27= severe major depression.) A [place] Suicide Severity Rating Scale (C-SSRS) Screener/Recent-Self Report [...] fully oriented. Memory: grossly intact. Judgment/Insight: good. ONAL PROPERTY MANAGER documented in this encounter Plan of Treatment Upcoming Encounters Date Type Department Care Team (Late st Contact Info) Description 10/23/2024 11:00 AM REGIONAL PROPERTY MANAGER Appointment [facility] [address] [place] [address] [phone] Alba Saunders MSW,MASH TUB COOKER [address] [place] [phone] documented as of this encounter Visit Diagnoses Diagnosis Obsessive-compulsive disorder with good or fair insight- Primary Generalized anxiety disorder documented in this encounter Care Teams Reconciliation Analyst Relationship Specialty Start Date End Date Tatyana Valverde MD [address] [place] [phone] PCP - General Family Medicine 04/05/21 documented as of this encounter
--- OUTSIDE RECORDS SUMMARY | 2024-10-17 09:08 | XMS_ITS | Encounter Summary ---
Author Organization [facility] Address [address] [address] Phone Care Team Providers Care Construction Or Leak Gang Laborer Name Role Phone Tatyana Vavlerde MD Primary Care Provider [phone] Encounter Details Date Type Department Care Team (Latest Contact Info) Description 09/03/2024 Travel Social History Tobacco Use Types Packs/Day Years Used Date Smoking Tobacco: Never Smokeless Tobacco: Never Alcohol Use Standard Drinks/Week Comments Yes 3 (1 standard drink = 0.6 oz pure alcohol) once every 1-2 weeks, a few drinks [facility] Utilities Answer Date Recorded In the past 12 months has [employer], gas, oil, or water company threatened [...] were you homeless or living in a prison (including now)? No 04/22/2024 EH IP Housing [...] Sex Assigned at Female 08/27/2022 12:57 PM MANDATE RETAIL SERVICE MERCHANDISER Legal Sex Female 1:52 PM CDT Gender Identity Female 08/27/2022 12:57 PM MANDATE RETAIL SERVICE MERCHANDISER Sexual Orientation Not on file documented as of this encounter Plan of Treatment Upcoming Encounters Date Type Department Care Team (Late st Contact Info) Description 10/23/2024 11:00 AM MANDATE RETAIL SERVICE MERCHANDISER Appointment [facility] [address] [place] [address] [phone] Alba Saunders, SLITTING MACHINE OPERATOR,[facility] [address] [place] [address] [phone] documented as of this encounter Visit Diagnoses Not on filedocumented in this encounter Care Teams Construction Or Leak Gang Laborer Relationship Specialty Start Date End Date Tatyana Valverde MD [facility] [place] [address] PCP - General Family Medicine 04/05/21 documented as of this encounter
--- OUTSIDE RECORDS SUMMARY | 2024-10-17 09:08 | XMS_ITS | Encounter Summary ---
Author Organization [facility] Address [address] [address] Phone Care Team Providers Care Gift Manager Name Role Phone Tatyana Valverde MD Primary Care Provider [phone] Encounter Details Date Type Department Care Team ([facility] st Contact Info) Description 10/08/[address] [facility] E [facility] [address] [place] [address] [phone] Social History Tobacco Use Types Packs/Day Years Used Date Smoking Tobacco: Never Smokeless Tobacco: Never Alcohol Use Standard Drinks/Week Comments Yes 3 (1 standard drink = 0.6 oz pure alcohol) once every 1-2 weeks, a few drinks [facility] Utilities Answer Date Recorded In the past 12 months has [facility] electric, gas, oil, or water [employer] threatened to shut off services in your [...] Sex Assigned at Female 08/27/2022 12:57 PM HOME HEALTH AID Legal Sex Female 1:52 PM CDT Gender Identity Female 08/27/2022 12:57 PM HOME HEALTH AID Sexual Orientation Not on file documented as of this encounter Miscellaneous Notes * Treatment Plans - Alba Saunders, MIXOLOGIST,[facility] - 10/08/2024 11:37 AM HOME HEALTH AID Treatment Plan: Anxiety, OCD, PTSD: GOAL for TIFFANIE: Understand how irrational thoughts increase anxiety. OBJECTIVE: Patient reports understanding of the relationship between thoughts and anxiety reactions. GOAL for OCD: Reduce compulsions surrounding repetitive behaviors. OBJECTIVE: Patient reports that obsessions/compulsions are not interfering with daily activities. GOAL for PTSD: Reduce/eliminate symptoms of heightened arousal. OBJECTIVE: Patient reports that jumpiness/hypervigilance/irritability are gone or reduced to a managed level.. GOAL for PTSD: Increase appropriate sense of trust and interpersonal connectedness. OBJECTIVE: Patient reports ability to interact comfortably with others as appropriate. With clinician assistance, Patient will: Learn cognitive/behavioral techniques (e.g., relaxation/breathing exercises, positive self-talk) tocombat panic. Identify most problematic compulsions and practice exposure/response prevention and adaptive competing behaviors. Identify most problematic obsessions and practice thought stopping and adaptive competing thoughts. Process trauma memories (including associated feelings and impact of the trauma). Learn ART Clinician will: Monitor effectiveness of psychotropic medication. Monitor safety each session. Assess for co-morbid conditions. Provide education to Patient about nature and treatment of this diagnosis. Anticipated Time to Completion: 3-6 Months HEALTH AID documented in this encounter Plan of Treatment Upcoming Encounters Date Type Department Care Team (Late st Contact Info) Description 10/23/2024 11:00 AM HOME HEALTH AID Appointment [facility] [address] [place] [phone] Alba Saunders MSW,FLAT BREAKDOWN PROCESSOR [address] [place] [phone] documented as of this encounter Visit Diagnoses Not on filedocumented in this encounter Care Teams Gift Manager Relationship Specialty Start Date End Date Tatyana Valverde MD [address] [place] [phone] PCP - General Family Medicine 04/05/21 documented as of this encounter
[2024-10-17 09:43] LABS: Ur HCG Qualitative* Negative (Negative)
--- NOTE | 2024-10-17 09:57 | W.PM.H&PU ---
History & Physical Update History & Physical Update H&P Reviewed and patient assessed: No changes noted
--- NOTE | 2024-10-17 09:58 | PM.ORPRC ---
Procedure Note Date of procedure: 10/17/24 Procedure: PREOPERATIVE DIAGNOSES: 1. Right medial malleolus ankle fracture, closed, displaced POSTOPERATIVE DIAGNOSES: 1. Right medial malleolus ankle fracture, closed, displaced NAME OF OPERATION: 1. Right medial malleolus ankle fracture open reduction internal fixation SURGEON: Ignacio Hill MD COMMISSION SALES ASSOCIATE: Sailaja Tadeo P.A.-C.; An certified ophthalmic assistant was critical for this case to aid in patient positioning, leg manipulation, tissue retraction, closure, and splinting. ANESTHESIA: Spinal. EBL: 5 mL IMPLANTS: 4.0 mm partially-threaded cannulated screws x2 TOURNIQUET: 39 minutes at 250 mmHg INDICATIONS: The patient is a pleasant 19-year-old female who sustained a right ankle injury in the recent past which resulted in pain and difficulty bearing weight. Workup included x-rays, which revealed a displaced medial malleolus ankle fracture. Given the displacement of this fracture, surgery was recommended to improve alignment and allow for healing in a more anatomic position. Prior to surgery, the risks and benefits of the procedure were discussed with the patient, all questions were answered, and informed consent was obtained. FINDINGS: Closed, displaced, medial malleolus fracture. Intact syndesmosis. PROCEDURE: Patient was seen preoperatively and operative site was marked. She was then brought to the operating room and spinal anesthesia was administered. She was then placed into the supine position on the OR table. The operative extremity was prepped and draped in the usual sterile fashion. 2 g IV Ancef was administered for prophylaxis. A surgical time-out was performed confirming patient identity, surgical site, and surgical procedure. The operative extremity was exsanguinated, and the tourniquet inflated. A longitudinal incision measuring approximately 4 cm was made overlying the medial malleolar fracture. Blunt dissection was utilized to dissect through the subcutaneous tissues to allow us to protect the crossing neurovascular structures. Deep fascia was incised in line with the surgical incision. The fracture was identified and cleared of interposed periosteum and fracture hematoma. Fracture site was irrigated normal saline. The fracture was then reduced and held in place with a pointed reduction clamp. Two guidewires for the 4.0 mm cannulated screws were then drilled in a retrograde fashion across the fracture. Fluoroscopic imaging confirmed anatomic reduction of the fracture and good placement of the guidewires. The guidewires were then overdrilled and partially-threaded 4.0 mm cannulated screws were secured into position. Guidewires were then removed. Fluoroscopic imaging confirmed anatomic reduction with good compression and good placement of the screws. After confirming appropriate reduction and positioning of the screws using fluoroscopic imaging, an external rotation stress was placed on the ankle to test for syndesmosis stability. Syndesmosis was confirmed to be stable with no widening of the syndesmosis or medial clear space. At this stage, the surgical wound was thoroughly irrigated with normal saline, and the tourniquet was released Total tourniquet time was 39 minutes. Hemostasis was achieved electrocautery. The fascial layer was closed with 2-0 Vicryl and [id number] interrupted sutures. Skin incision was closed with 2-0 Vicryl inverted interrupted subcutaneous stitches followed by running 2-0 Stratafix subcuticular stitch and Dermabond. Sterile dressings were and a well-padded short-leg splint were applied. The patient was awoken from anesthesia and transferred to the PACU in stable condition. PLAN: 1. Ice and elevation of operative extremity for pain and swelling. 2. Tylenol and oxycodone as needed for pain. 3. Toe-touch weight-bearing operative extremity. 4. Keep splint clean and dry. 5. Follow up in Orthopedic Clinic in 10-14 days for wound check and splint removal. 6. Will initiate formal physical therapy in approximately 2 weeks. -begin ankle range of motion at that time. -may advance weight-bearing as tolerated in the boot after 1st postoperative visit. -continue cam boot for weight-bearing activities until 6-8 weeks postoperatively.
[2024-10-17] MEDS: SODIUM CHLORIDE 0.9 % (FLUSH) 10 ML SYRINGE IVF (10:10)
--- NOTE | 2024-10-17 10:15 | CRLHL7_ITS ---
For Patients: As a result of the Century Cures Act, medical imaging exams and procedure reports are released immediately into your electronic medical record. You may view this report before your referring provider. If you have questions, please contact your health care provider. INDICATION: Right medial malleolus ORIF TECHNIQUE: Intraoperative C-arm fluoroscopy. IMPRESSION: Intraoperative C-arm fluoroscopy was provided. Fluoroscopy time 20.3 seconds. Four images were captured. Dictated by Johnnie Walters MD @ 10/19/2024 8:23:06 AM (Electronically Signed)
[2024-10-17] MEDS: CEFAZOLIN 2 GM INJ IVP (11:05)
--- NOTE | 2024-10-17 11:24 | W.ANESCHARGE ---
Anesthesia Charges Start Date/Time Anesthesia Start Date: 10/17/24 Anesthesia Start Time: 10:44 Stop Date/Time Anesthesia Stop Date: 10/17/24 Anesthesia Stop Time: 12:22 Coding CPT Codes CPT Codes: ANESTH LOWER LEG BONE SURG - 33009 ([id number]) P1 - NORMAL HEALTHY PATIENT, QK - PETROLEUM ENGINEER 2-4 CNCRNT ANES PROC, QX - REVENUE AUDIT CLERK SVEduardo W/ MED DIRECTION
[2024-10-17] MEDS: BUPIVACAINE 0.5 %/EPI 1:200K 20 ML INJECTION (11:52)
--- NOTE | 2024-10-17 12:24 | W.ANESCHARGE ---
Anesthesia Charges Start Date/Time Anesthesia Start Date: 10/17/24 Anesthesia Start Time: 10:44 Stop Date/Time Anesthesia Stop Date: 10/17/24 Anesthesia Stop Time: 12:22 Coding CPT Codes CPT Codes: ANESTH LOWER LEG BONE SURG - 06400 ([id number]) P2 - PATIENT W/MILD SYST DISEASE, QK - STEAM ROOM ATTENDANT 2-4 CNCRNT ANES PROC, QX - TECHNICAL SUPPORT DIRECTOR SVC W/ MD MED DIRECTION
[2024-10-17] MEDS: OxyCODONE/APAP 5-325 TABLET PO (13:08)
--- NOTE | 2024-10-17 14:57 | SUR.PHASEII ---
Pt verbalized readiness to be discharged and verbalized confidence in crutch ambulation. Patient had all questions answered regarding discharge instructions by RN. Patient left with friend.
== END 2024-10-17 14:55 | disposition home or self-care (01) ==
LOC: OR 09:05
PROVIDERS: Visit Provider Orthopaedic Surgery
PROC: (CPT 27766; principal; 2024-10-17 10:15)
DX: S82.51XA Displaced fracture of medial malleolus of right tibia, initial encounter for closed fracture (principal)
CPT/HCPCS: 27766; 01480; 73600; 81025; A9270; C1713; J0690; J1100; J2250; J2405; J2704; J3490; J7120